=== PATIENT | female | born 1980 | race Caucasian/White ===

== ENCOUNTER 2019-03-26 05:04 | Inpatient (IN) | payer BC ==
[~2019-03-26] VITALS: Ht 167.6 cm; Wt 74.0 kg
[2019-03-26] MEDS ORDERED: LACTATED RINGERS 1,000 ML IV SCH ×3 (05:10→10:50)
[2019-03-26] MEDS ORDERED: OXYTOCIN 30U/ 0.9% NaCL 500ML 500 ML IV ONE (05:10)
[2019-03-26] MEDS ORDERED: OXYTOCIN 30U/ 0.9% NaCL 500ML 500 ML IV PRN (05:10)
[2019-03-26] MEDS ORDERED: NEWBORN KIT ONE (05:10)
[2019-03-26] MEDS ORDERED: D5%-LACTATED RINGERS 1,000 ML IV SCH (05:10)
[2019-03-26] MEDS ORDERED: OXYTOCIN 30U/ 0.9% NaCL 500ML 500 ML ONE ×2 (05:11→13:37)
[2019-03-26] MEDS ORDERED: MISOPROSTOL 200 MCG TABLET ONE (05:11)
[2019-03-26] MEDS ORDERED: LIDOCAINE 1%, 20ML ONE (05:11)
[2019-03-26] MEDS ORDERED: FENTANYL/BUPIV./NS/PF 250 ML EPIDCONT SCH ×2 (05:12→10:50)
[2019-03-26] MEDS ORDERED: CALCIUM CARBONATE 500 MG TAB.CHEW PO PRN (05:30)
[2019-03-26] MEDS ORDERED: LACTATED RINGERS 1,000 ML IVBOLUS PRN ×2 (05:30→11:00)
[2019-03-26] MEDS ORDERED: FENTANYL PF 100 MCG/2ML IV PRN (05:30)
[2019-03-26] MEDS ORDERED: EPHEDRINE 50 MG/ML, 1ML IVPush PRN ×2 (05:30→11:00)
[2019-03-26] MEDS ORDERED: TERBUTALINE 1 MG/ML, 1ML IVPush PRN (05:30)
[2019-03-26] MEDS ORDERED: ONDANSETRON 2MG/ML, 2ML IVPush PRN ×2 (05:30→11:00)
[2019-03-26] MEDS ORDERED: TERBUTALINE 1 MG/ML, 1ML SQ PRN (05:30)
[2019-03-26] MEDS ORDERED: FENTANYL PF 100 MCG/2ML IVPush PRN (05:30)
[2019-03-26 05:50] VITALS: BP 116/81
[2019-03-26 06:01] LABS: BASOPHILS # (AUTO) 0.02 x10^3/uL (0-0.1); BASOPHILS % (AUTO) 0 % (0-1); EOSINOPHILS # (AUTO) 0.08 x10^3/uL (0-0.4); EOSINOPHILS % (AUTO) 1 % (1-7); LYMPHOCYTES # (AUTO) 1.85 x10^3/uL (1-3.4); LYMPHOCYTES % (AUTO) 19 % (22-44); MD NO; MEAN CORPUSCULAR HEMOGLOBIN 30.4 pg (27.0-34.8); MEAN CORPUSCULAR HGB CONC 33.7 g/dL (32.4-35.8); MEAN CORPUSCULAR VOLUME 90.3 fL (80-100); MEAN PLATELET VOLUME 8.5 fL (7.4-10.4); MONOCYTES # (AUTO) 0.65 x10^3/uL (0.2-0.8); MONOCYTES % (AUTO) 7 % (2-9); NEUTROPHILS # (AUTO) 7.35 x10^3/uL (1.8-6.8); NEUTROPHILS % (AUTO) 74 % (42-75); PLATELET COUNT 232 x10^3/uL (130-400); RED CELL DISTRIBUTION WIDTH 14.1 % (9.6-15.2)
[2019-03-26] MEDS ORDERED: FENTANYL PF 500 MCG, BUPIVACAINE/PF 0.5%, 30ML 62.5 ML in SODIUM CHLORIDE 0.9% 177.5 ML EPIDCONT SCH (06:30)
[2019-03-26] MEDS ORDERED: BUPIVACAINE 0.25% ONE (10:31)
[2019-03-26] MEDS ORDERED: LIDOCAINE/PF 1.5%-EPI 1:200K, 30ML ONE (10:53)
[2019-03-26] MEDS ORDERED: DIPHENHYDRAMINE 50 MG/ML, 1ML IVPush PRN (11:00)
[2019-03-26] MEDS ORDERED: NALOXONE 0.4 MG/ML, 1ML IVPush PRN (11:00)
[2019-03-26] MEDS: OXYTOCIN 30U/ 0.9% NaCL 500ML 500 ML IV SCH ×2 (12:57→22:57)
[2019-03-26] MEDS ORDERED: METHYLERGONOVINE 0.2 MG/ML IM PRN (13:00)
[2019-03-26] MEDS ORDERED: MISOPROSTOL 200 MCG TABLET PR PRN (13:00)
[2019-03-26] MEDS ORDERED: DOCUSATE 100 MG CAPSULE PO PRN (13:00)
[2019-03-26] MEDS ORDERED: CARBOPROST TROMETHAMINE 250 MCG/ML, 1ML IM PRN (13:00)
[2019-03-26] MEDS ORDERED: OXYcodone/APAP 5/325MG TABLET PO PRN ×2 (13:00)
[2019-03-26] MEDS ORDERED: DIPH,PERTUSS(ACELL),TET VAC/PF NC IM-VACC PRN (13:00)
[2019-03-26] MEDS ORDERED: ACETAMINOPHEN 325 MG TABLET PO PRN ×2 (13:00)
[2019-03-26] MEDS ORDERED: SIMETHICONE 80 MG CHEW TAB PO PRN (13:00)
[2019-03-26 15:15] VITALS: BP 112/76
[2019-03-26 20:05] VITALS: BP 116/74
[2019-03-26 20:31] LABS: BASOPHILS # (AUTO) 0.02 x10^3/uL (0-0.1); BASOPHILS % (AUTO) 0 % (0-1); EOSINOPHILS # (AUTO) 0.17 x10^3/uL (0-0.4); EOSINOPHILS % (AUTO) 1 % (1-7); LYMPHOCYTES # (AUTO) 1.66 x10^3/uL (1-3.4); LYMPHOCYTES % (AUTO) 10 % (22-44); MEAN CORPUSCULAR HEMOGLOBIN 30.1 pg (27.0-34.8); MEAN CORPUSCULAR HGB CONC 33.5 g/dL (32.4-35.8); MEAN CORPUSCULAR VOLUME 90.1 fL (80-100); MONOCYTES # (AUTO) 0.85 x10^3/uL (0.2-0.8); MONOCYTES % (AUTO) 5 % (2-9); NEUTROPHILS # (AUTO) 13.44 x10^3/uL (1.8-6.8); NEUTROPHILS % (AUTO) 83 % (42-75); PLATELET COUNT 190 x10^3/uL (130-400); RED BLOOD COUNT 3.67 x10^6/uL (3.82-5.3); RED CELL DISTRIBUTION WIDTH 13.8 % (9.6-15.2)
[2019-03-26 20:32] LABS: MD NO
[2019-03-26] MEDS: IBUPROFEN 600 MG TABLET PO PRN (22:59)
[2019-03-26 23:00] VITALS: BP 123/78
[2019-03-27 04:00] VITALS: BP 100/65
[2019-03-27] MEDS: OXYTOCIN 30U/ 0.9% NaCL 500ML 500 ML IV SCH (08:20)
[2019-03-27 08:21] VITALS: BP 109/75
[2019-03-27] MEDS: IBUPROFEN 600 MG TABLET PO PRN (08:27)
[2019-03-27] MEDS ORDERED: PRENATAL VIT/IRON/FA 1 EACH TABLET PO SCH (09:00)
[2019-03-27] MEDS ORDERED: IBUP-1222 PO (12:31)
[2019-03-27] MEDS ORDERED: ACYC-114 PO (12:31)
== END 2019-03-27 13:20 | disposition home or self-care (01) | DRG 807 ==
LOC: LDIP 05:04 → 2NW 15:24
PROVIDERS: ADMIT Obstetrics & Gynecology Maternal & Fetal Medicine; ATTEND Obstetrics & Gynecology Maternal & Fetal Medicine
PROC: 10E0XZZ Delivery of Products of Conception, External Approach (ICD-10-PCS; principal; 2019-03-26)
PROC: 3E0R3BZ Introduction of Anesthetic Agent into Spinal Canal, Percutaneous Approach (ICD-10-PCS; 2019-03-26)
PROC: 00HU33Z Insertion of Infusion Device into Spinal Canal, Percutaneous Approach (ICD-10-PCS; 2019-03-26)
PROC: 0UQGXZZ Repair Vagina, External Approach (ICD-10-PCS; 2019-03-26)
DX: O71.4 Obstetric high vaginal laceration alone (principal); Z37.0 Single live birth; Z3A.39 39 weeks gestation of pregnancy
CPT/HCPCS: 36415; J3490; S0020; 85025; 86592; 86850; 86900; G0378; J3010; J2590; J7050; J7120